=== PATIENT | male | born 1950 | race Caucasian/White ===

== ENCOUNTER → 2020-04-18 | Outpatient (CLI) | payer MEDICARE, OTHER ==
--- NOTE | 2020-04-18 14:28 | RAD ---
CT LOW DOSE LUNG SCREENING INDICATION: low dose screen (smoker) COMPARISON STUDY: None. TECHNIQUE: Unenhanced axial images were obtained through the lungs and upper abdomen using low dose technique. Coronal and sagittal multiplanar reformatted images were also obtained. PQRS compliance statement: One or more of the following individualized dose reduction techniques were utilized for this examination: 1. Automated exposure control 2. Adjustment of the mA and/or kV according to patient size 3. Use of iterative reconstruction technique FINDINGS: Lung Nodules: Left lower lobe solid subpleural nodule measuring 6 mm (series 2 image 249). Lungs and Airways: No pulmonary mass or consolidation. Biapical subpleural fibrosis. Paraseptal and centrilobular emphysema. Normal central airways. Pleura: Normal pleural spaces. Heart and Mediastinum: The visualized portions of the thyroid gland are normal in size and attenuation. No axillary or supraclavicular lymphadenopathy. No mediastinal, hilar or retrocrural lymphadenopathy. Calcified mediastinal and right hilar lymph nodes, consistent with remote granulomatous disease. The heart and pericardium are within normal limits. The great vessels of the thorax are normal. Abdomen: The visualized abdominal organs demonstrate no abnormality. Bones and Soft Tissues: Degenerative changes of the spine. IMPRESSION: 1. Indeterminate left lower lobe solid nodule measuring 6 mm. Lung-RADS Category: 3 Management Recommendation: Follow up low-dose chest CT in 6 months. 2. Emphysema. Electronically signed by: Ector Hill MD (04/18/2020 2:17 PM) [id number]
== END | disposition home or self-care (01) ==
LOC: CT 10:53
PROVIDERS: ATTEND Internal Medicine Pulmonary Disease
DX: R91.1 Solitary pulmonary nodule (principal); J84.10 Pulmonary fibrosis, unspecified; J43.9 Emphysema, unspecified; M47.819 Spondylosis without myelopathy or radiculopathy, site unspecified; Z87.891 Personal history of nicotine dependence
CPT/HCPCS: G0297

== ENCOUNTER → 2020-10-13 | Outpatient (CLI) | payer MEDICARE, OTHER ==
--- NOTE | 2020-10-13 19:48 | RAD ---
EXAM: Chest CT without intravenous contrast. HISTORY: Pulmonary nodule follow-up. TECHNIQUE: Computed tomographic images of the chest were obtained without contrast. Multiplanar reformatting was performed. *One or more of the following individualized dose reduction techniques were utilized for this examination: 1. Automated exposure control. 2. Adjustment of the mA and/or kV according to patient size. 3. Use of iterative reconstruction technique. COMPARISON: 04/18/2020. FINDINGS: The heart is normal in size. The aorta is normal in caliber. There are partially calcified mediastinal and hilar lymph nodes due to healed granulomatous disease. There are few stable prominent noncalcified mediastinal and hilar lymph nodes. These are nonspecific and likely physiologic or reactive in etiology. There is no pneumothorax or pleural effusion. There is mild emphysema with biapical predominant pleural parenchymal scarring and subpleural bleb formation. There is a 5 mm nodule along the right minor fissure, likely a fissural lymph node. There is a 6 mm nodule within the posterior lateral left lower lobe. There is a 1.3 cm exophytic cyst within the upper pole of the right kidney. Follow-up is not routinely recommended for simple renal cysts. There are degenerative changes involving the spine. IMPRESSION: 1. Stable 6 mm nodule within the left lower lobe and 5 mm nodule within the right minor fissure, the latter of which is likely a fissural lymph node. Follow-up can be performed in one year if there are risk factors for pulmonary neoplasm. 2. Pulmonary emphysema. 3. Stable prominent mediastinal and hilar lymph nodes, some which are calcified due to healed granulomatous disease. Electronically signed by: Elvira Wade MD (10/13/2020 7:45 PM) [facility]
== END ==
LOC: CT 11:28
PROVIDERS: ATTEND Internal Medicine Pulmonary Disease
DX: R91.1 Solitary pulmonary nodule (principal); J43.9 Emphysema, unspecified; N28.1 Cyst of kidney, acquired
CPT/HCPCS: 71250

== ENCOUNTER → 2021-07-24 | Outpatient (CLI) | payer MEDICARE, OTHER ==
[~2021-07-24] MED LIST: GADOTERATE 7.5 MMOL/15ML VIAL. INT ART ONE; IOHEXOL 300 MG/ML 50 ML VIAL. INT ART ONE; LIDOCAINE 1% Multi-Dose 20 ML VIAL. ID ONE
--- NOTE | 2021-07-24 15:06 | KCIC ---
STUDY: MRI arthrogram of the right shoulder INDICATION: Right shoulder pain. COMPARISON: No prior right shoulder MRI. TECHNIQUE: Multiplanar MR imaging of the right shoulder performed after the intra-articular injection of contrast material. The injection portion of the procedure is detailed in a separate report. FINDINGS: Study degradation on account of motion. Diagnostic utility is mostly maintained. AC joint: Moderate to severe AC joint arthrosis with periarticular marrow edema, cystic change and ca psular hypertrophy. Small amount of joint fluid. No gadolinium-containing fluid within the subacromia l subdeltoid bursa. Rotator cuff: Low-grade articular sided fraying of the anterior supraspinatus at and just medial to t he footprint with less than 25 percent loss of tendon cross-sectional thickness. Tiny interstitial te ar at the supraspinatus/infraspinous junction at the footprint with less than 25 percent tendon invol vement. Intact teres minor. Degenerative heterogeneity at the subscapularis insertion without a high- grade tear. Muscular bulk is maintained. Labrum: Mild degenerative type SLAP tear confined to the superior labrum. Heterogeneous signal and mo rphology along portions of the lower half of the labrum as well. Long head biceps tendon: Normally located. No high-grade tear. Mild tendinosis. Cartilage: Chondrosis at the medial humeral head and mainly at the lower half of the glenoid. Faint s ubchondral cystic change at the lower lip of the glenoid. Bones: Degenerative remodeling and cystic change at the lesser tuberosity. Tiny medial humeral head o steophyte formation. Impression: 1. No high-grade or full-thickness rotator cuff tear. Only mild articular sided fraying of the anteri or supraspinatus at and just medial to the footprint. Muscular bulk is maintained. 2. Mild degenerative SLAP-type tear confined to the superior labrum. There is also degenerative heter ogeneity along portions of the lower half of the labrum. Mild long head biceps tendinosis. 3. Glenohumeral degenerative changes with chondrosis best seen at the lower margin of the glenoid wit h mild subchondral cystic change. Moderate/severe arthrosis at the acromioclavicular joint. Electronically signed by: DINESH MONTANEZ MD (07/24/2021 3:03 PM) [id number]
--- NOTE | 2021-07-25 08:29 | KCIC ---
Study: Fluoroscopically guided arthrogram of the right shoulder joint for MRI Indication: Right shoulder pain. Contrast: 0.1 cc Clariscan; approximately 2 cc Omnipaque 300 Technique: A timeout was performed prior to beginning the procedure in order to confirm patient identity and lat erality of the injection. The risks, benefits and alternatives of the procedure were discussed. Utilizing sterile technique, fluoroscopic guidance and local anesthesia with 1% lidocaine, the right shoulder joint was accessed utilizing a 22-gauge, 3.5" spinal needle. Confirmation of needle position was obtained with a small amount of radiopaque contrast. Subsequently, approximately 12 cc of a mixt ure containing 0.1 cc Clariscan, 15 cc saline and 5 cc lidocaine was injected. There were no immediat e post procedure complications. Fluoroscopy time: 24 seconds Number of images obtained: 1 Impression: Technically successful fluoroscopic guided arthrogram of the right shoulder joint without immediate p ostprocedure complication. Electronically signed by: DINESH MONTANEZ MD (07/25/2021 8:27 AM) [id number]
== END | disposition home or self-care (01) ==
LOC: KCIC 12:32
PROVIDERS: ATTEND Family Medicine
DX: M25.511 Pain in right shoulder (principal); M19.011 Primary osteoarthritis, right shoulder
CPT/HCPCS: 23350; 73222; 77002; A9575; J3490; Q9967

== ENCOUNTER → 2021-08-18 | Outpatient (CLI) | payer MEDICARE, OTHER ==
--- NOTE | 2021-09-06 13:41 | RESP ---
DATE OF SERVICE: 08/18/2021 ATTENDING PHYSICIAN: Derek Pino MD The patient underwent full pulmonary function testing on 08/18. The FEV1 to FVC ratio was 62%, FEV1 was 1.86 liters or 60% of predicted. FVC was 2.99 liters or 70% of predicted. There was a 12% bronchodilator response. Residual volume was elevated. Total lung capacity was elevated. Diffusion capacity was elevated. IMPRESSION: 1. Severe airflow limitation. 2. 12% bronchodilator response on FEV1. 3. Elevated diffusion capacity. [facility] [place] DR: Jason TID: [id number]
== END ==
LOC: PF 10:13
PROVIDERS: ATTEND Internal Medicine Pulmonary Disease
DX: R91.1 Solitary pulmonary nodule (principal); I10 Essential (primary) hypertension
CPT/HCPCS: 94060; 94640; 94726; 94729; 94664

== ENCOUNTER → 2022-03-12 | Outpatient (CLI) | payer MEDICARE, OTHER ==
--- NOTE | 2022-03-12 16:19 | KCIC ---
EXAMINATION: Magnetic resonance imaging (MRI) of the lumbar spine without contrast 03/12/2022 2:35 PM HISTORY: Lumbar radiculopathy. Chronic bilateral lower extremity leg cramping. TECHNIQUE: Multiplanar multi-weighted MRI of the lumbar spine was performed without intravenous contr ast using the standard lumbar spine protocol. Contrast information: None administered. COMPARISON: None available. FINDINGS: The alignment of the lumbar spine is normal. 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 There is heterogeneity of the marrow signal with scattered areas of T1 sig nal hypointensity. No edema is identified involving bilateral L5 pedicles. A definite pars defect is not visualized. There are no compression fractures. The conus medullaris terminates at the level of L1-L2. The distal spinal cord signal intensity is normal. There is disc desiccation at all levels of lumbar spine, sparing L4-L5. Mild disc height loss at L1-L2. Modic type II endplate degenerative monet nges at L2-L3. Limited views of the abdomen and pelvis show no soft tissue abnormality. The aorta is normal. T12-L1: There is a circumferential disc bulge with right central disc extrusion. Mild facet arthropat hy. Mild bilateral neuroforaminal stenosis. Mild spinal canal stenosis without deformity of the conus . L1-L2: There is a circumferential disc bulge with left foraminal disc protrusion. Mild facet arthropa thy. Moderate left and mild right neuroforaminal stenosis. Mild spinal canal stenosis. L2-L3: There is a circumferential disc bulge. Mild to moderate facet arthropathy ligamentum flavum in folding. Mild bilateral neuroforaminal stenosis. Moderate spinal canal stenosis and accessory by epid ural lipomatosis. L3-L4: There is a circumferential disc bulge with central disc protrusion. Mild facet arthropathy lig amentum flavum infolding. Moderate bilateral neuroforaminal stenosis. Mild to moderate spinal canal s tenosis. L4-L5: There is a circumferential disc bulge. Moderate to severe facet arthropathy ligamentum flavum infolding. Moderate bilateral neuroforaminal stenosis. Moderate spinal canal stenosis. There is right lateral recess stenosis. L5-S1: There is a circumferential disc bulge. Moderate facet arthropathy. Mild bilateral neuroforamin al stenosis. No spinal canal stenosis. IMPRESSION: Mild to moderate degenerative changes of the lumbar spine as described in detail above. Heterogeneity of the marrow is nonspecific. Correlate with any underlying marrow replacing disorder s uch as multiple myeloma. There is bilateral L5 pedicle edema without definite fracture. CT of the lumbar spine could be of almita efit to assess for pars defect. Electronically signed by: Shamika Rhodes MD (03/12/2022 4:17 PM) [facility]
== END ==
LOC: KCIC MRI 13:04
PROVIDERS: ATTEND Family Medicine
DX: M47.26 Other spondylosis with radiculopathy, lumbar region (principal); M51.27 Other intervertebral disc displacement, lumbosacral region; M48.8X7 Other specified spondylopathies, lumbosacral region; M48.07 Spinal stenosis, lumbosacral region; E88.2 Lipomatosis, not elsewhere classified
CPT/HCPCS: 72148